=== PATIENT | female | born 1950 | race Caucasian/White ===

== ENCOUNTER 2018-10-19 16:37 | Emergency (ER) | payer OTHER ==
[~2018-10-19] VITALS: Ht 154.9 cm; Wt 63.5 kg
[2018-10-19 16:45] VITALS: BP 139/89
--- NOTE | 2018-10-19 16:54 | NUR ---
68y/f bib ems found by bystander fell on the side walk with laceration to the side of the left eye brow; denies loc or pain at this time. pt is aaox4, vss at this time. bed down, bedrail up x 1, er md aware and ntotified of pt status. hx; dementia rx; unobatainable at this time, will be given by direct care staffer when she arrives
[2018-10-19] MEDS ORDERED: DIVA250T PO (17:16)
[2018-10-19] MEDS ORDERED: LORA0.5T6 PO (17:16)
[2018-10-19] MEDS ORDERED: MELA3TAB PO (17:16)
[2018-10-19] MEDS ORDERED: RIVA20TA PO (17:16)
[2018-10-19] MEDS ORDERED: QUET100T PO (17:16)
--- NOTE | 2018-10-19 17:16 | NUR ---
caregiver, Christine from [facility] to call with updates or if pt needs a ride home.
[2018-10-19] MEDS ORDERED: NEOMYCIN/POLYMYXIN/BACITRACIN 0.9 GM/1 PKT TP ONE (17:20)
[2018-10-19] MEDS ORDERED: LORazepam 2 MG/ML VIAL IM ONE (17:20)
--- NOTE | 2018-10-19 18:27 | NUR ---
physician olga requested dermabond instead of sutures as pt is becoming agitated and refusing needles.
--- NOTE | 2018-10-19 18:27 | NUR ---
pt taken to CT
--- NOTE | 2018-10-19 18:27 | NUR ---
PT REFUSING SUTURES. DOCTOR FOWER AWARE AND REQUESTING DERMABOND INSTEAD OF SUTURE SETUP. DOCTOR ALHAJI APPLIED DERMABOND TO THE LEFT EYEBROW AREA.
--- NOTE | 2018-10-19 19:03 | NUR ---
CAREGIVER CALLED AND LEFT A MESSAGE
--- NOTE | 2018-10-19 19:20 | NUR ---
RECEIVED REPORT FROM AM NURSE. PT LAYING IN BED, RR EVEN AND UNLABORED. DENIES ANY PAIN. ALL NEEDS MET AT THIS TIME.
--- NOTE | 2018-10-19 19:29 | NUR ---
CALLED ARIC KATHLEEN, PT'S , [phone]. NOTIFIED THAT PT IS READY FOR DISCHARGE, HE IS UNABLE TO MOLDER FITTING AT THIS TIME BUT HE IS ABLE TO SET UP TRANSPORT FOR PT BACK TO [facility], DEISY RUIZ [phone]
[2018-10-19 20:32] VITALS: BP 155/78
== END 2018-10-19 20:32 ==
LOC: MED 16:37
DX: S01.112A Laceration without foreign body of left eyelid and periocular area, initial encounter (principal); F03.90 Unspecified dementia, unspecified severity, without behavioral disturbance, psychotic disturbance, mood disturbance, and anxiety; Z79.899 Other long term (current) drug therapy; W18.30XA Fall on same level, unspecified, initial encounter; Y93.01 Activity, walking, marching and hiking; Y92.410 Unspecified street and highway as the place of occurrence of the external cause; Y99.8 Other external cause status
CPT/HCPCS: 12013; 70450; 72125; 90471; 90715; 96372; 99285; J2060